=== PATIENT | female | born 1955 | race Caucasian/White ===

== ENCOUNTER 2020-03-22 10:18 | Emergency (ER) | payer SELFPAY ==
[2020-03-22] MEDS ORDERED: KETOROLAC TROMETHAMINE INJ/PF 30 MG/1 ML SDV IV ONE (10:46)
--- NOTE | 2020-03-22 10:49 | ER Document Report ---
ED Medical Screen (RME) - General Chief Complaint: Fall Stated Complaint: FALL/RIGHT ARM,KNEE,LEG PAIN Time Seen by Provider: 03/22/20 10:38 Mode of Arrival: Medic Information source: Patient Notes: 65-year-old female presented to ED for complaint of pain to the right shoulder arm elbow forearm wrist and hand and knee. She states she was twisted around and then she landed on her left shoulder causing pain to the left shoulder. The pain is mostly to the right shoulder and arm and knee. Patient does have tenderness to the right shoulder elbow wrist and knee and has severe pain when any of these are moved. Patient did come by EMS and was given Dilaudid 1 mg in the EMS. I have ordered x-rays for all areas and given her 15 mg of Toradol IV. I have greeted and performed a rapid initial assessment of this patient. A comprehensive ED assessment and evaluation of the patient, analysis of test results and completion of medical decision making process will be conducted by an additional ED providers. - Related Data Allergies/Adverse Reactions: cyclobenzaprine [From Flexeril] Allergy (Verified 03/22/20 10:46) methocarbamol [From Robaxin] Allergy (Verified 03/22/20 10:46) muscle relaxers Allergy (Uncoded 03/22/20 10:46) Past Medical History - Social History Chew tobacco use (# tins/day): No Frequency of alcohol use: None Drug Abuse: None Physical Exam - Vital signs Vitals: Temp Pulse Resp BP Pulse Ox 98.6 F 64 16 130/63 H 99 03/22/20 10:24 03/22/20 10:24 03/22/20 10:24 03/22/20 10:24 03/22/20 10:24 Course - Vital Signs Vital signs: Temp Pulse Resp BP Pulse Ox 98.6 F 64 16 130/63 H 99 03/22/20 10:24 03/22/20 10:24 03/22/20 10:24 03/22/20 10:24 03/22/20 10:24
--- NOTE | 2020-03-22 12:08 | RADIOLOGY REPORT (SQ) ---
EXAM DESCRIPTION: FOREARM RIGHT IMAGES COMPLETED DATE/TIME: 03/22/2020 11:33 am REASON FOR STUDY: Slipped fell severe pain COMPARISON: None. NUMBER OF VIEWS: Two views. TECHNIQUE: Two radiographic images acquired of the right forearm, including elbow and wrist in at le ast one projection. LIMITATIONS: None. FINDINGS: MINERALIZATION: Normal. BONES: No acute fracture. No worrisome bone lesions. SOFT TISSUES: No obvious swelling or foreign body. OTHER: No other significant finding. IMPRESSION: NEGATIVE STUDY OF THE RIGHT FOREARM. NO RADIOGRAPHIC EVIDENCE OF ACUTE INJURY. TECHNICAL DOCUMENTATION: JOB ID: [id number] 2010 [employer]- All Rights Reserved Reading location - IP/workstation name: [email or web address]
--- NOTE | 2020-03-22 12:11 | RADIOLOGY REPORT (SQ) ---
EXAM DESCRIPTION: ELBOW RIGHT OVER 2 VIEWS IMAGES COMPLETED DATE/TIME: 03/22/2020 11:33 am REASON FOR STUDY: Slipped fell severe pain COMPARISON: None. NUMBER OF VIEWS: Three views. TECHNIQUE: AP, lateral, and oblique radiographic images acquired of the right elbow. LIMITATIONS: None. FINDINGS: MINERALIZATION: Normal. BONES: No acute fracture or dislocation. No worrisome bone lesions. JOINT: There is a joint effusion. SOFT TISSUES: No soft tissue swelling. No foreign body. OTHER: No other significant finding. IMPRESSION: Dual effusion. No fracture is appreciated. TECHNICAL DOCUMENTATION: JOB ID: [id number] 2010 [employer]- All Rights Reserved Reading location - IP/workstation name: [email or web address]
--- NOTE | 2020-03-22 12:12 | RADIOLOGY REPORT (SQ) ---
EXAM DESCRIPTION: SHOULDER LEFT 2 OR MORE VIEWS IMAGES COMPLETED DATE/TIME: 03/22/2020 11:33 am REASON FOR STUDY: Slipped fell severe pain COMPARISON: None. NUMBER OF VIEWS: Three views. TECHNIQUE: Internal rotation, external rotation, and Y view images acquired of the left shoulder. LIMITATIONS: None. FINDINGS: MINERALIZATION: Normal. BONES: No acute fracture. No worrisome bone lesions. JOINTS: No dislocation. VISUALIZED LUNGS AND RIBS: No pneumothorax. No rib fracture. SOFT TISSUES: No radiopaque foreign body. OTHER: No other significant finding. IMPRESSION: NEGATIVE STUDY OF THE LEFT SHOULDER. NO RADIOGRAPHIC EVIDENCE OF ACUTE INJURY. TECHNICAL DOCUMENTATION: JOB ID: [id number] 2010 [employer]- All Rights Reserved Reading location - IP/workstation name: [email or web address]
--- NOTE | 2020-03-22 12:13 | RADIOLOGY REPORT (SQ) ---
EXAM DESCRIPTION: SCAPULA LEFT IMAGES COMPLETED DATE/TIME: 03/22/2020 11:33 am REASON FOR STUDY: Slipped fell severe pain COMPARISON: None. NUMBER OF VIEWS: Two views. TECHNIQUE: AP and lateral images acquired of the left scapula. LIMITATIONS: None. FINDINGS: MINERALIZATION: Normal. BONES: No acute fracture . No worrisome bone lesions. No significant osteophytes. SOFT TISSUES: No calcifications. VISUALIZED RIBS, SPINE, AND LUNG: No other significant finding. OTHER: No other significant finding. IMPRESSION: Negative left scapula. TECHNICAL DOCUMENTATION: JOB ID: [id number] 2010 [employer]- All Rights Reserved Reading location - IP/workstation name: [email or web address]
--- NOTE | 2020-03-22 12:15 | RADIOLOGY REPORT (SQ) ---
EXAM DESCRIPTION: SHOULDER RIGHT 2 OR MORE VIEWS IMAGES COMPLETED DATE/TIME: 03/22/2020 11:33 am REASON FOR STUDY: Slipped fell severe pain COMPARISON: None. NUMBER OF VIEWS: Three views. TECHNIQUE: Internal rotation, external rotation, and Y view images acquired of the right shoulder. LIMITATIONS: None. FINDINGS: MINERALIZATION: Normal. BONES: Postsurgical changes in the humeral head. No acute fracture or dislocation. JOINTS: No dislocation. VISUALIZED LUNGS AND RIBS: No pneumothorax. No rib fracture. SOFT TISSUES: No radiopaque foreign body. OTHER: No other significant finding. IMPRESSION: No acute findings. TECHNICAL DOCUMENTATION: JOB ID: [id number] 2010 [employer]- All Rights Reserved Reading location - IP/workstation name: [email or web address]
--- NOTE | 2020-03-22 12:15 | RADIOLOGY REPORT (SQ) ---
EXAM DESCRIPTION: KNEE RIGHT 4 VIEWS IMAGES COMPLETED DATE/TIME: 03/22/2020 11:33 am REASON FOR STUDY: Fall with pain COMPARISON: None. NUMBER OF VIEWS: Four views. TECHNIQUE: AP, lateral, and both oblique radiographic images acquired of the right knee. LIMITATIONS: None. FINDINGS: MINERALIZATION: Normal. BONES: No acute fracture or dislocation. No worrisome bone lesions. JOINT: No effusion. Joint space narrowing in all compartments consistent with osteoarthritis. SOFT TISSUES: No soft tissue swelling. No radio-opaque foreign body. OTHER: No other significant finding. IMPRESSION: Tricompartmental osteoarthritis. No acute fracture or dislocation. TECHNICAL DOCUMENTATION: JOB ID: [id number] 2010 [employer]- All Rights Reserved Reading location - IP/workstation name: [email or web address]
--- NOTE | 2020-03-22 12:15 | RADIOLOGY REPORT (SQ) ---
EXAM DESCRIPTION: WRIST RIGHT 3 VIEWS IMAGES COMPLETED DATE/TIME: 03/22/2020 11:33 am REASON FOR STUDY: Slipped fell severe pain COMPARISON: None. NUMBER OF VIEWS: Three views. TECHNIQUE: AP, lateral, and oblique radiographic images acquired of the right wrist. LIMITATIONS: None. FINDINGS: MINERALIZATION: Normal. BONES: No acute fracture or dislocation. No worrisome bone lesions. Normal alignment. SOFT TISSUES: No soft tissue swelling. No foreign body. OTHER: No other significant finding. IMPRESSION: NEGATIVE STUDY OF THE RIGHT WRIST. NO RADIOGRAPHIC EVIDENCE OF ACUTE INJURY. TECHNICAL DOCUMENTATION: JOB ID: [id number] 2010 [employer]- All Rights Reserved Reading location - IP/workstation name: [email or web address]
[2020-03-22] MEDS ORDERED: HYDROMORPHONE HCL INJ/PF 2 MG/ML AMPULE IV ONE (13:37)
[2020-03-22] MEDS ORDERED: ONDANSETRON HCL INJ/PF 4 MG/2 ML SDV IV ONE (13:37)
[2020-03-22 14:17] VITALS: BP 120/60
--- NOTE | 2020-03-22 16:25 | ER Document Report ---
Entered by DOMINIK BECERRA SCRIBE 03/22/20 1332 Acting as scribe for:EMILY JOHANSEN MD ED Fall - General Chief Complaint: Fall Stated Complaint: FALL/RIGHT ARM,KNEE,LEG PAIN Time Seen by Provider: 03/22/20 10:38 Mode of Arrival: Medic Information source: Patient Notes: This 65 year old female patient presents to the emergency department today with complaints of a fall that occurred just prior to arrival. Patient is visiting the area and is currently staying at the [facility]. Patient reports there was a small area of water she did not see and she slipped on the concrete and fell. She has resulting pain in her right shoulder, right elbow, and right knee. Patient mentions that she has chronic right knee pain and she can't tell if this pain today is much worse or different than her baseline pain. - Related data Allergies/Adverse Reactions: cyclobenzaprine [From Flexeril] Allergy (Verified 03/22/20 10:46) methocarbamol [From Robaxin] Allergy (Verified 03/22/20 10:46) muscle relaxers Allergy (Uncoded 03/22/20 10:46) Past Medical History - General Information source: Patient - Social History Smoking Status: Never Smoker Cigarette use (# per day): No Chew tobacco use (# tins/day): No Frequency of alcohol use: Social - wine at dinner Drug Abuse: None Family History: Reviewed & Not Pertinent - Past Medical History Cardiac Medical History: Reports: Hx Hypertension Musculoskeletal Medical History: Reports Hx Arthritis - Osteoarthritis Surgical Hx: Negative Review of Systems - Review of Systems Constitutional: No symptoms reported EENT: No symptoms reported Cardiovascular: No symptoms reported Respiratory: No symptoms reported Gastrointestinal: No symptoms reported Genitourinary: No symptoms reported Female Genitourinary: No symptoms reported Musculoskeletal: See HPI, Joint pain - right shoulder, right knee, right elbow Skin: No symptoms reported Hematologic/Lymphatic: No symptoms reported Neurological/Psychological: No symptoms reported -: Yes All other systems reviewed and negative Physical Exam - Vital signs Vitals: Temp Pulse Resp BP Pulse Ox 98.6 F 64 16 130/63 H 99 03/22/20 10:24 03/22/20 10:24 03/22/20 10:24 03/22/20 10:24 03/22/20 10:24 - Notes Notes: Physical Exam: General: Alert, appears uncomfortable. HEENT: Normocephalic. Atraumatic. PERRL. Extraocular movements intact. Oropharynx clear. Neck: Supple. Non-tender. Respiratory: No respiratory distress. Clear and equal breath sounds bilaterally. Cardiovascular: Regular rate and rhythm. Abdominal: Obese. Non-tender. No distension. Normal Bowel Sounds. Back: No gross abnormalities. Extremities: Upper extremities: Left upper extremity is unremarkable. Right shoulder is generally tender with palpation with increased tenderness over the anterior medial shoulder. Patient is able to pronate and supinate the right arm with some pain to the radial head. Lower extremities: There is tenderness to palpation over the right lateral collateral ligament, flexion of the right knee causes exquisite pain posteriorly. Neurological: Normal cognition. AAOx4. Normal speech. Psychological: Normal affect. Normal Mood. Skin: Warm. Dry. Normal color. Course - Vital Signs Vital signs: Temp Pulse Resp BP Pulse Ox 98.6 F 64 16 130/63 H 99 03/22/20 10:24 03/22/20 10:24 03/22/20 10:24 03/22/20 10:24 03/22/20 10:24 - Diagnostic Test Radiology reviewed: Image reviewed, Reports reviewed - X-rays ordered from triage included left shoulder, left scapula, right shoulder, right forearm, right wrist--all unremarkable. Right knee x-ray shows tricompartmental osteoarthritis. Right elbow shows joint effusion without fracture seen. Discharge - Discharge Clinical Impression: Contusion of right shoulder or upper extremity Sprain of right elbow Qualifiers: Encounter type: initial encounter Qualified Code(s): S53.401A - Unspecified sprain of right elbow, initial encounter Strain of right knee Qualifiers: Encounter type: initial encounter Qualified Code(s): S86.911A - Strain of unspecified muscle(s) and tendon(s) at lower leg level, right leg, initial encounter Condition: Stable Disposition: HOME, SELF-CARE Additional Instructions: Right Elbow Effusion: Your elbow shows no sign of fracture. However, there is fluid (probably blood) within the elbow joint. This may be due to a subtle cartilage injury or sprain, but it may also be a sign of a hidden fracture at the elbow. The usual treatment is to immobilize the elbow, and treat it exactly as if it were broken. Then in a few days, the joint will be rechecked by the physician for evidence of a hidden fracture. This follow-up is important -- the elbow must be checked as often as necessary until the physician is sure there is no broken bone. You should call the doctor or return at once if the elbow or forearm becomes severely painful or swollen, or if you become numb in the arm or hand. Knee Immobilizing Splint: The knee immobilizing splint will protect the injury while healing begins. This type of splint does not allow the knee to bend at all. No running or sports will be possible. If the splint allows painfree walking, it's giving adequate protection. If there is still significant pain, crutches may be needed as well. Don't do anything that hurts. Adjusted the splint, if necessary. The stiffeners on the sides are attached with Velcro, so they can be easily moved to adjust for thigh and calf size. If you need help with these adjustments, come back. You will lose muscle strength in the thigh while using this splint. The doctor will advise you if it's safe to do isometric knee exercises while you use it. Take the pain medication as needed. Use the sling to support your right arm and shoulder and to limit motion at the elbow. Use the knee immobilizer to provide support for your knee until it feels comfortable bearing weight without the immobilizer. Follow-up with your primary care provider or your orthopedic doctor when you return home for recheck. RETURN TO THE EMERGENCY ROOM IF ANY NEW OR WORSENING SYMPTOMS. Prescriptions: Oxycodone HCl/Acetaminophen [Percocet 5-325 mg Tablet] 1 tab PO ASDIR PRN #15 tablet PRN Reason: I personally performed the services described in the documentation, reviewed and edited the documentation which was dictated to the scribe in my presence, and it accurately records my words and actions.
== END 2020-03-22 14:18 | disposition home or self-care (01) ==
LOC: ER 10:18
DX: S40.021A Contusion of right upper arm, initial encounter (principal); S53.401A Unspecified sprain of right elbow, initial encounter; S86.911A Strain of unspecified muscle(s) and tendon(s) at lower leg level, right leg, initial encounter; M25.511 Pain in right shoulder; M25.512 Pain in left shoulder; W01.0XXA Fall on same level from slipping, tripping and stumbling without subsequent striking against object, initial encounter; Y92.59 Other trade areas as the place of occurrence of the external cause; M17.11 Unilateral primary osteoarthritis, right knee; Z88.8 Allergy status to other drugs, medicaments and biological substances; I10 Essential (primary) hypertension
CPT/HCPCS: 99284; 96374; 96375; 73080; 73090; 73564; 73010; 73030 ×2; 73110; J1885; J1170; J2405